=== PATIENT | female | born 1970 | race Two or more races ===

== ENCOUNTER 2018-02-01 13:18 | Emergency (ER) | payer OTHER ==
[2018-02-01] MEDS ORDERED: NS 1,000 ML IV ONE (14:21)
[2018-02-01 14:35] LABS: PLATELET COUNT 261 10^3/uL (150-400)
--- NOTE | 2018-02-01 14:35 | EDPHY ---
H & P Stated Complaint: Left abdo and flank for 3 weeks, similar to previous kidney stones. - Personal History Current Tetanus Diphtheria and Acellular Pertussis (TDAP): Yes - Medical/Surgical History Hx Asthma: No Hx Chronic Respiratory Disease: No Hx Diabetes: No Hx Cardiac Disease: No Hx Renal Disease: No Hx Cirrhosis: No Hx Alcoholism: No Hx HIV/AIDS: No Hx Splenectomy or Spleen Trauma: No Other PMH: Kidney stones - Social History Smoking Status: Never smoked Time Seen by Provider: 02/01/18 14:34 HPI/ROS: CLINICAL IMPRESSION: Left flank pain, generalized abdominal pain, constipation ASSESSMENT/PLAN: 47-year-old otherwise healthy [place]ese-speaking only female presents to the emergency department with complaints of 3 weeks of intermittent left flank pain with radiation to the left lower quadrant. Patient does have a history of kidney stones and reported this pain felt the same. Pain was controlled well with a single dose of IV analgesics in the ER. Urine shows no signs of significant hematuria, bacteriuria or pyuria. She is not . No renal insufficiency, leukocytosis, metabolic disturbance, pancreatitis or electrolyte imbalance. CT abdomen pelvis without contrast read by Radiology with no evidence of nephrolithiasis, ureterolithiasis, hydronephrosis, or other acute finding. I reviewed patient's results with patient and her daughter using a stone circular sawyer. As mentioned, patient was pain free on reassessments. Abdomen remains soft without focal peritoneal findings. I feel it is safe to discharge this patient home with outpatient primary care and possible gastroenterology follow-up. Case was signed out to Dr. Craig at 5:00 p.m. Pending completion of EKG. Patient reports no prior cardiac history and has no chest pain or shortness of breath. Vital signs remained stable at time of sign-out DIFFERENTIAL DX: Abdominal pain including but not limited to appendicitis, cholecystitis, gastritis and urinary tract infection. Flank pain including but not limited to musculoskeletal causes, kidney stone, pyelonephritis, shingles, and intra- abdominal causes such as diverticulitis and appendicitis. ED COURSE: 1351: CT read by Dr. Donovan, no evidence of hydronephrosis, nephrolithiasis, ureterolithiasis. No obvious acute findings. Labs reviewed 7:00 p.m.: stone circular sawyer used to review CT and lab findings with the patient. EKG pending at this time. Patient is pain-free currently. No clinical signs of acute surgical abdomen or admission requirement. Patient feels comfortable with discharge and outpatient follow-up. Referrals provided. CHIEF COMPLAINT: Left flank and abdominal pain x3 weeks HPI: This is a 47-year-old otherwise healthy [place]ese-speaking only female presents to the emergency department with 3 weeks of left flank pain which radiates to the left lower quadrant. Patient and her daughter report that she has a history of kidney stones and that this pain feels the same way. She has reportedly seen her primary care doctor for this, had urine studies but did not receive the results. She has not had any imaging studies. She did not require lithotripsy in the past. She reports no fevers, chills, abnormal vaginal discharge, chest pain, shortness of breath, change in bowel habits, bloody stools. She has not taken anything for the pain. She reports no past medical history including diabetes, CAD, hypertension, chronic UTI or renal failure PMH: None reported Pertinent Past Surgical History: Previous appendectomy Family History: No prior family history of chronic GI illness or coronary artery disease Social History: Nonsmoker does not drink alcohol ROS: All other systems negative Constitutional: No fever, no chills, appetite change. Cardiovascular: No chest pain, no palpitations. Respiratory: No cough, no shortness of breath. Gastrointestinal: no vomiting, diarrhea. Genitourinary: No hematuria, dysuria, flank pain, pelvic pain Musculoskeletal: No joint swelling, joint pain, myalgias. Skin: No rashes, color change. Neurological: No headache, dizziness, weakness. PHYSICAL EXAM: General Appearance: Alert, oriented, appropriate, cooperative, NAD, well hydrated, non-toxic appearing, VSS, no hypoxia [place]ese-speaking only. Neck: Supple, nontender, no lymphadenopathy, no midline pain, FROM, no meningismus. Respiratory: There are no retractions, lungs are clear to auscultation. Cardiac: Regular rate and rhythm, no murmurs or gallops. Gastrointestinal: Abdomen is soft, bowel sounds normal, no masses/hernia, no rigidity, guarding or focal peritoneal findings, generalized discomfort throughout entire abdomen, more so to the left lower quadrant. Neurological: Alert and oriented x 3, CN 2-12 grossly intact, normal gait no ataxia, DTR's intact, normal sensation and strength Skin: Warm, dry, no rashes, no nodules on palpation. Musculoskeletal: Extremities are symmetrical, full range of motion, no tenderness, deformity, swelling, or erythema. Psychiatric: Patient is oriented X 3, there is no agitation. MEDICAL DECISION MAKING: Patient was seen independently by established practice protocols. Secondary supervising physician at time of evaluation was Dr. Craig. Diagnosis: Left flank pain, generalized abdominal pain. New, requires workup Summary: See Assessment and Plan for summary of ED visit Clinical lab tests: ordered / reviewed. Independent visualization of images, tracing, or specimens: Yes. Decision to obtain medical records or history from someone other than the patient: Patient's daughter Discussed patient with another provider: dimensional inspector, radiology Patient Progress: Improved, stable. (Roel Armas) Constitutional: Initial Vital Signs Temperature (C) 36.5 C 02/01/18 13:22 Heart Rate 93 02/01/18 13:22 Respiratory Rate 18 02/01/18 13:22 Blood Pressure 132/75 H 02/01/18 13:22 O2 Sat (%) 95 02/01/18 13:22 O2 Delivery Mode Room Air Allergies/Adverse Reactions: No Known Allergies Allergy (Verified 12/28/15 15:24) Home Medications: Medication Instructions Recorded Cephalexin [Keflex (*)] 500 mg PO Q6 5 Days cap 02/01/18 - Data Points Laboratory Results: Laboratory Results 02/01/18 14:25 02/01/18 14:25 Medications Given: Discontinued Medications Diazepam (Valium) 5 mg PO EDNOW ONE Stop: 02/01/18 14:55 Last Admin: 02/01/18 15:02 Dose: 5 mg Fentanyl (Sublimaze) 50 mcg IVP EDNOW ONE Stop: 02/01/18 14:54 Last Admin: 02/01/18 15:02 Dose: 50 mcg Sodium Chloride (Ns) 1,000 mls @ 3,000 mls/hr IV ONCE ONE Stop: 02/01/18 14:40 Last Admin: 02/01/18 14:27 Dose: 1,000 mls Ketorolac Tromethamine (Toradol) 15 mg IVP EDNOW ONE Stop: 02/01/18 14:54 Last Admin: 02/01/18 15:02 Dose: 15 mg Ondansetron HCl (Zofran) 4 mg IVP EDNOW ONE Stop: 02/01/18 15:22 Last Admin: 02/01/18 15:23 Dose: 4 mg Departure - Departure Disposition: Home, Routine, Self-Care Clinical Impression: Flank pain, acute, Abdominal pain, Urinary tract infection Condition: Good Instructions: Abdominal Pain (ED), Flank Pain (ED) Additional Instructions: DISCHARGE INSTRUCTIONS FROM YOUR DOCTOR Thank you for visiting our emergency department today. Please keep in mind that discharge from the emergency department does not mean that there is nothing wrong - it simply means that we have not identified an emergency condition that requires further evaluation or treatment in the hospital. You should always plan to follow up with primary care for re-evaluation of your condition in the next 2-3 days. If you have been referred to a specialist, please call as soon as possible (today or tomorrow) to schedule your follow up appointment at the appropriate time. [We did not identify dangerous cause for abdominal pain today. CT scan did not show signs of kidney stone or infection. Urine did not appear infected. Lab work was reassuring. EKG looked unremarkable. Please make a follow-up appointment with her primary care doctor this week to recheck. Please consider adding fiber, fruits, vegetables and more water in her diet to help with constipation. Return to the emergency department for worsening abdominal pain, fever, vomiting, bloody stools, chest pain, shortness of breath or any other concern. ] People present with illnesses and injuries in different ways, and it is always possible that we have missed something. You may always return for re-evaluation if symptoms worsen or if they are not improving or if you develop new/different symptoms. Again, thank you for choosing our emergency department. We hope that you feel better. Referrals: NONE *PRIMARY CARE P,. [Primary Care Provider] - As per Instructions [facility],. [Clinic] - As per Instructions Curtis Mcwilliams DO [Doctor of Osteopathy] - As per Instructions Prescriptions: Cephalexin [Keflex (*)] 500 mg PO Q6 5 Days cap
[2018-02-01] MEDS ORDERED: KETOROLAC 30 MG/1 ML SDV IVP ONE (14:53)
[2018-02-01] MEDS ORDERED: fentaNYL 100 MCG/2 ML INJ IVP ONE (14:53)
[2018-02-01] MEDS ORDERED: DIAZEPAM 5 MG TAB PO ONE (14:54)
[2018-02-01] MEDS ORDERED: ONDANSETRON 4 MG/2 ML VIAL IVP ONE (15:21)
[2018-02-01 17:26] VITALS: BP 106/59
--- NOTE | 2018-02-02 17:36 | CPEKG ---
Test Reason : OPEN Blood Pressure : / mmHG Vent. Rate : 070 BPM Atrial Rate : 070 BPM P-R Int : 145 ms QRS Dur : 082 ms QT Int : 415 ms P-R-T Axes : 010 011 000 degrees QTc Int : 448 ms Sinus rhythm Low voltage, precordial leads Abnormal R-wave progression, early transition Confirmed by Geovany Mcconnell ([id number]) on 02/02/2018 5:36:13 PM Referred By: Confirmed By:Geovany Mcconnell
== END 2018-02-01 17:36 | disposition home or self-care (01) ==
DX: R10.9 Unspecified abdominal pain (principal); N39.0 Urinary tract infection, site not specified; Z87.442 Personal history of urinary calculi
CPT/HCPCS: 96374; J1885; J2405; J3010

== ENCOUNTER 2018-07-28 21:26 | Emergency (ER) | payer OTHER ==
[2018-07-28] MEDS ORDERED: KETOROLAC 15 MG/1 ML SDV IVP ONE (22:05)
[2018-07-28] MEDS ORDERED: NS 1,000 ML IV ONE (22:05)
--- NOTE | 2018-07-28 22:09 | EDPHY ---
H & P Stated Complaint: L lower back pain and L falnk pain x4 days Time Seen by Provider: 07/28/18 21:58 HPI/ROS: Nigerian translation provided by family member per their request. HPI The patient presents with left-sided flank pain which has been present for the last 4 days which started slowly and now has become progressively worse and is constant. Patient describes a diffuse ache of her left flank which is dull in nature and radiates to her abdomen. It initially began after coughing. She also for the last 2 weeks has been dealing with a rash on her extremities which is presumed vasculitis, however she is awaiting a biopsy from [facility]. REVIEW OF SYSTEMS 10 systems were reviewed and negative with the exception of the elements mentioned in the history of present illness. 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, UTI, history of kidney stones Soc Hx: Here with her family PHYSICAL General Appearance: Alert, uncomfortable appearing Eyes: Pupils equal and round no pallor or injection ENT, Mouth: Mucous membranes moist Respiratory: There are no retractions, lungs are clear to auscultation Cardiovascular: Regular rate and rhythm Gastrointestinal: Abdomen is soft and non-tender, no masses, bowel sounds normal Back: There is tenderness to her left flank diffusely Neurological: A&O, moves all extremities Skin: Warm and dry, no rashes Musculoskeletal: Neck is supple non tender Extremities: symmetrical, full range of motion Psychiatric: Patient is oriented X 3, there is no agitation Source: Patient Exam Limitations: No limitations - Personal History LMP (Females 10-55): Irregular Current Tetanus/Diphtheria Vaccine: Yes - Medical/Surgical History Hx Asthma: No Hx Chronic Respiratory Disease: No Hx Diabetes: No Hx Cardiac Disease: No Hx Renal Disease: No Hx Cirrhosis: No Hx Alcoholism: No Hx HIV/AIDS: No Hx Splenectomy or Spleen Trauma: No Other PMH: Kidney stones - Social History Smoking Status: Never smoked Constitutional: Initial Vital Signs Temperature (C) 36.7 C 07/28/18 21:30 Heart Rate 93 07/28/18 21:30 Respiratory Rate 16 07/28/18 21:30 Blood Pressure 116/81 H 07/28/18 21:30 O2 Sat (%) 96 07/28/18 21:30 O2 Delivery Mode Room Air Allergies/Adverse Reactions: No Known Allergies Allergy (Verified 07/28/18 21:32) Home Medications: Medication Instructions Recorded Benzonatate 07/28/18 Hydrocodone-Acetamin 10-300 mg 07/28/18 Prednisone 07/28/18 Naproxen 375 mg PO BID PRN #30 tablet 07/29/18 Medical Decision Making - Diagnostics Imaging Results: Imaging Impressions Abdomen/Pelvis CT 07/28/18 22:05 Impression: 1. There is no evidence of nephrolithiasis or interim obstructive uropathy, or interval change in the appearance of the left kidney since 02/01/2018. This does not exclude the diagnosis of pyelonephritis, if otherwise clinically indicated. 2. Status post appendectomy. 3. Mild right-sided constipation with some fecalization of the terminal ileum, suggesting some slow transit. 4. Bilateral L5 spondylolysis, without an accompanying spondylolisthesis. Attention: This CT examination is specifically designed to evaluate patients who are clinically suspected of having acute obstructive uropathy. This examination does not use radiographic contrast, and as such, provides only a limited evaluation of the abdomen, pelvis, and retroperitoneum. If there is further clinical suspicion for pathological conditions other than obstructive uropathy, a complete CT evaluation of the abdomen and pelvis utilizing intravenous, oral, and rectal contrast should be considered. Imaging: Discussed imaging studies w/ order caller Radiologist Differential Diagnosis: 47-year-old female presents with 4 days of left-sided flank pain. Interestingly , diagnosed with a vasculitis awaiting results of skin biopsy with rash over the last 2 weeks and associated cough. Here, she is quite uncomfortable, she has tenderness to her left flank. Differential diagnosis includes muscle strain, pyelonephritis, ureterolithiasis. In the emergency department, patient received IV fluid and Toradol with complete resolution in her pain. Labs were unremarkable including UA. I suspect her pain is muscular and I have explained this to her. She does have L5 spondylolysis which could be causing some low back pain, however her pain seems to be centered more in her flank and at the midline. It is unclear to me if her flank pain and recent diagnosis of vasculitis or truly related. I have explained this to her. I would like for her to follow up with her primary care provider at [facility] within the next few days to see if she can review her biopsy results and have a recheck. She is happy with this plan and will be discharged home with her daughter. - Data Points Laboratory Results: Laboratory Results 07/28/18 22:10 07/28/18 22:10 07/28/18 07/28/18 07/28/18 23:50 22:10 22:10 WBC 10.07 10^3/uL H 10^3/uL (3.80-9.50) RBC 4.19 10^6/uL 10^6/uL (4.18-5.33) Hgb 12.9 g/dL g/dL (12.6-16.3) Hct 38.5 % % (38.0-47.0) MCV 91.9 fL fL (81.5-99.8) MCH 30.8 pg pg (27.9-34.1) MCHC 33.5 g/dL g/dL (32.4-36.7) RDW 13.7 % % (11.5-15.2) Plt Count 354 10^3/uL 10^3/uL (150-400) MPV 9.6 fL fL (8.7-11.7) Neut % (Auto) 70.2 % % (39.3-74.2) Lymph % (Auto) 20.0 % % (15.0-45.0) [place] % (Auto) 6.6 % % (4.5-13.0) Eos % (Auto) 2.0 % % (0.6-7.6) Baso % (Auto) 1.0 % % (0.3-1.7) Nucleat RBC Rel Count 0.0 % % (0.0-0.2) Absolute Neuts (auto) 7.08 10^3/uL H 10^3/uL (1.70-6.50) Absolute Lymphs (auto) 2.01 10^3/uL 10^3/uL (1.00-3.00) Absolute Monos (auto) 0.66 10^3/uL 10^3/uL (0.30-0.80) Absolute Eos (auto) 0.20 10^3/uL 10^3/uL (0.03-0.40) Absolute Basos (auto) 0.10 10^3/uL 10^3/uL (0.02-0.10) Absolute Nucleated RBC 0.00 10^3/uL 10^3/uL (0-0.01) Immature Gran % 0.2 % % (0.0-1.1) Immature Gran # 0.02 10^3/uL 10^3/uL (0.00-0.10) Sodium 138 mEq/L mEq/L (135-145) Potassium 4.0 mEq/L mEq/L (3.5-5.2) Chloride 106 mEq/L mEq/L (97-110) Carbon Dioxide 25 mEq/l mEq/l (22-31) Anion Gap 7 mEq/L mEq/L (6-14) BUN 13 mg/dL mg/dL (7-23) Creatinine 0.8 mg/dL mg/dL (0.6-1.0) Estimated GFR > 60 Glucose 118 mg/dL H mg/dL (70-100) Calcium 9.3 mg/dL mg/dL (8.5-10.4) Total Bilirubin 0.4 mg/dL mg/dL (0.1-1.4) AST 20 IU/L IU/L (14-46) ALT 16 IU/L IU/L (9-52) Alkaline Phosphatase 88 IU/L IU/L (38-126) Total Protein 7.3 g/dL g/dL (6.3-8.2) Albumin 4.0 g/dL g/dL (3.5-5.0) Lipase 60 IU/L IU/L (23-300) Urine Color YELLOW Urine Appearance HAZY Urine pH 6.0 (5.0-7.5) Ur Specific [place] 1.020 (1.002-1.030) Urine Protein NEGATIVE (NEGATIVE) Urine Ketones NEGATIVE (NEGATIVE) Urine Blood NEGATIVE (NEGATIVE) Urine Nitrate NEGATIVE (NEGATIVE) Urine Bilirubin NEGATIVE (NEGATIVE) Urine Urobilinogen NEGATIVE EU EU (0.2-1.0) Ur Leukocyte Esterase NEGATIVE (NEGATIVE) Urine Glucose NEGATIVE (NEGATIVE) Medications Given: Discontinued Medications Sodium Chloride (Ns) 1,000 mls @ 0 mls/hr IV EDNOW ONE; Wide Open PRN Reason: Protocol Stop: 07/28/18 22:06 Last Admin: 07/28/18 22:31 Dose: 1,000 mls Ketorolac Tromethamine (Toradol) 15 mg IVP EDNOW ONE Stop: 07/28/18 22:06 Last Admin: 07/28/18 22:33 Dose: 15 mg Departure - Departure Disposition: Home, Routine, Self-Care Clinical Impression: Flank pain, acute Condition: Good Instructions: Flank Pain (ED) Additional Instructions: The cause of your pain is not clear. It could possibly be related to vasculitis. Because of this, I would like for you to follow up with your primary care doctor. I would like for you to take the anti-inflammatory medication. You can take MiraLax for constipation as well. La causa de cornelius dolor no est daryl. Posiblemente podra estar relacionado con vasculitis. Debido a esto, me gustara que realice un seguimiento con cornelius mdico de atencin primaria. Me gustara que tomes el medicamento antiinflamatorio. Tambin puede denis MiraLax para el estreimiento. Referrals: Roseanne Vázquez [employer] F[employer] ROLL CUTTER [Primary Care Provider] - As per Instructions Prescriptions: Naproxen 375 mg PO BID PRN #30 tablet PRN Reason: Pain, Breakthrough
[2018-07-28 22:22] LABS: PLATELET COUNT 354 10^3/uL (150-400)
[2018-07-29 00:47] VITALS: BP 118/82
== END 2018-07-29 00:47 | disposition home or self-care (01) ==
DX: R10.32 Left lower quadrant pain (principal); Z87.442 Personal history of urinary calculi
CPT/HCPCS: 96374; J1885